=== PATIENT | female | born 1980 | race Caucasian/White ===

== ENCOUNTER 2018-12-26 09:27 | Emergency (ER) | payer OTHER, SELFPAY ==
[2018-12-26 09:38] VITALS: BP 143/93; PULSE 71; RESP 18; TEMP 37.2; O2SAT 100; BMI 26.4
--- NOTE | 2018-12-26 09:44 | ED_ITS ---
HPI - Chest Pain General Chief Complaint: Chest Pain Stated Complaint: chest pain/left arm/neck sore x2 days Time Seen by Provider: 12/26/18 09:35 Source: patient Mode of arrival: ambulatory Limitations: no limitations History of Present Illness HPI narrative: Patient is a 38-year-old female who presents with chest pain ongoing for the last few months. She says she has been to her PCP you did an EKG. She said last night she noticed it left of her chest and kind epigastric. She noticed it while she was watching TV it has been constant since then she was able to sleep off and on. It is nonradiating she denies any nausea she has no shortness of breath with exertion or at rest. No palpitations dizziness or lightheadedness. No family history of coronary artery disease. MD complaint: chest pain Onset (ago): month(s) Duration: constant Onset: during rest Pain location: substernal and left chest Severity: mild Related Data Home Medications Medication Instructions Recorded Confirmed naproxen 250 mg PO BID PRN MDD 500 12/26/18 12/26/18 Allergies Allergy/AdvReac Type Severity Reaction Status Date / Time aspirin Allergy Verified 12/26/18 09:40 Review of Systems Review of Systems Narrative: GENERAL: Denies chills, fatigue, malaise, fever, sweats, travel HEENT: Denies sinus pain, ear pain, sore throat, difficulty swallowing, neck pain RESPIRATORY: Denies dyspnea, cough, wheezing, hemoptysis, sputum. CARDIOVASCULAR: See HPI GASTROINTESTINAL: Denies nausea, vomiting, abdominal pain, diarrhea, constipation, melena. : Denies dysuria, frequency, incontinence, hematuria, urinary retention, flank pain. MUSCULOSKELETAL: Denies weakness, joint pain, or bony pain SKIN: No rash, no erythema, no pruritus NEUROLOGIC: Denies weakness, dizziness, headache, numbness, change in speech, confusion PSYCHIATRIC: No concerning psychosocial issues. 12 point review of systems is negative except for those stated above and HPI [facility] Medical History Patient denies medical problems (Acute) Social History Smoking Status: Never smoker Social History Smoking Status: Never smoker Comment: Implanon Exam Initial Vital Signs Initial Vital Signs: Vital Signs Temperature 98.9 F 12/26/18 09:38 Pulse Rate 71 12/26/18 09:38 Respiratory Rate 18 12/26/18 09:38 Blood Pressure 143/93 H 12/26/18 09:38 Pulse Oximetry 100 12/26/18 09:38 GENERAL: Well-appearing, well-nourished and in no acute distress. HEENT: Head atraumatic,EOMI, pupils reactive, face symmetric, moist mucous membranes CARDIOVASCULAR: Regular rate and rhythm without murmurs, rubs or gallops. RESPIRATORY: Breath sounds equal bilaterally, no wheezes rales or rhonchi. ABDOMEN: Soft, nontender. Normoactive bowel sounds all 4 quadrants. No guarding or rebound. EXTREMITIES: Normal range of motion, no clubbing or edema. Neurovascularly intact NEUROLOGICAL: Alert and oriented x4.Normal gait and speech. SKIN: Warm, dry, no laceration, no petechiae, no rashes or lesions. Scores HEART Score Heart Score history: Slightly Suspicious Heart Score EKG: Normal Heart Score Age: < 45 years old Heart Score risk factors: No known risk factors Heart Score troponin: < or = to normal limit Heart Score Total: 0 PERC Score Age greater than or equal to 50 years: No Heart rate greater than or equal to 100 bpm: No Room Air O2 Sat less than 95%: No Unilateral leg swelling: No Recent trauma or surgery: No Hemoptysis: No Prior PE or DVT: No Hormone Use: Yes Total PERC Score: 1 Course Orders Ordered: ED Orders 12/26/18 09:33 EKG-12 Lead Routine 12/26/18 09:40 Complete Blood Count AUTO DIFF Stat Comprehensive Metabolic Panel Stat D Dimer Stat Lipase Stat Troponin & CK Cardiac Panel Stat 12/26/18 09:42 XR chest 1V Stat Discontinued Medications Aspirin (Aspirin Chew) 324 mg PO NOW ONE Stop: 12/26/18 09:43 Last Admin: 12/26/18 09:47 Dose: Not Given Documented by: KATIE Ketorolac Tromethamine (Toradol) 30 mg IV NOW ONE Stop: 12/26/18 09:43 Last Admin: 12/26/18 09:50 Dose: 30 mg Documented by: KATIE Pantoprazole Sodium (Protonix) 40 mg IV NOW ONE Stop: 12/26/18 09:43 Last Admin: 09/16/19 09:49 Dose: 40 mg Documented by: KATIE Vital Signs Vital signs: Vital Signs - 8 hr 12/26/18 09:38 12/26/18 10:00 12/26/18 10:41 Temperature 98.9 F Pulse Rate 71 66 62 Respiratory Rate 18 16 15 Blood Pressure 143/93 H Blood Pressure [Left Arm] 123/92 H 123/85 Pulse Oximetry 100 100 100 MDM - Chest Pain Lab Data Attestation: I reviewed the patient's lab results. Result diagrams: 12/26/18 09:40 12/26/18 09:40 Labs: Lab Results 12/26/18 12/26/18 12/26/18 Range/Units 09:40 09:40 09:40 WBC 6.1 (4.5-11.0) X10^3/uL RBC 5.91 H (4.0-5.2) X10^6/uL Hgb 12.9 (12.0-16.0) g/dL Hct 39.7 (36-46) % MCV 67.1 L (80-100) fL MCH 21.9 L (26-34) PG MCHC 32.6 (30-36) % RDW 14.6 (11.6-14.8) % Plt Count 357 (150-400) X10^3/uL Neut % (Auto) 53.8 (50-75) % Lymph % (Auto) 36.4 (25-40) % Hettinger % (Auto) 7.4 (3-14) % Eos % (Auto) 1.4 L (2-4) % Baso % (Auto) 1.0 (0-2) % Neut # (Auto) 3300 (5691-9283) /uL Lymph # (Auto) 2200 (4156-2639) /uL Hettinger # (Auto) 500 (0-900) /uL Eos # (Auto) 100 (0-450) /uL Baso # (Auto) 100 (0-100) /uL RBC Morphology Normal morphology D-Dimer < 200 (<230) ng/mL Sodium 138 (137-145) mmol/L Potassium 3.9 (3.4-5.1) mmol/L Chloride 100 (98-107) mmol/L Carbon Dioxide 26 (22-32) mmol/L BUN 11 (7-17) mg/dL Creatinine 0.50 L (0.52-1.04) mg/dL Estimated GFR > 60.0 (>60) mL/min BUN/Creatinine Ratio 22.0 (6-22) Glucose 97 (70-100) mg/dL Calcium 9.2 (8.4-10.2) mg/dL Total Bilirubin 0.6 (0.2-1.3) mg/dL AST 24 (14-36) IU/L ALT 25 (9-52) IU/L Alkaline Phosphatase 92 (38-126) U/L Total Creatine Kinase 103 (30-135) U/L CK-MB (CK-2) 0.41 (<2.37) ng/mL CK-MB (CK-2) Rel Index 0.4 L (1.5-5.0) % Troponin I < 0.012 (0.01-0.034) ng/mL Total Protein 8.1 (6.3-8.2) g/dL Albumin 4.5 (3.5-5.0) g/dL Globulin 3.6 (1.7-4.1) g/dL Albumin/Globulin Ratio 1.3 (1.0-2.8) Lipase 95 (23-300) U/L Imaging Data Chest x-ray: Radiologist's impression: PROCEDURE: XR CHEST 1V INDICATIONS: chest pain TECHNIQUE: One view of the chest was acquired. COMPARISON: None. FINDINGS: Surgical changes and devices: None. Lungs and pleura: Lungs are clear. No pleural effusions or pneumothorax. Mediastinum: Mediastinal contours appear normal. Heart size is normal. Bones and chest wall: No suspicious bony lesions. Overlying soft tissues appear unremarkable. IMPRESSION: No acute cardiopulmonary disease. Dictated by: Gabbie Casey M.D. on 12/26/2018 at 10:34 ECG Data Attestation: I personally reviewed and interpreted this ECG as follows: Prior ECG tracings: not available for review Interpretation: Sinus rhythm rate 73 p.r. interval 140 for QRS 106 T-wave inversion noted in lead [address] elevation or depression. Incomplete right branch block noted. MDM Narrative Medical decision making narrative: The patient has a low risk heart score negative D-dimer low PERC score. At this time this is likely atypical chest pain recommend further outpatient workup. Troponin is negative. Pain only minimally improved after Toradol and Protonix. Discharge Plan Departure Patient Disposition: Home Clinical Impression: Atypical chest pain Discharge Date/Time: 12/26/18 10:57 Instructions: DI for Atypical Chest Pain Activity Restrictions/Additional Instructions: *You have been diagnosed with atypical chest pain *What to do: At this time blood work x-ray EKG are all reassuring. You may require further cardiac testing such as a stress test this can be discussed with her primary care provider *Continue to take medications as directed *Follow up with your primary care provider in 2-3 days *Return to ER if you should have increasing or changing chest discomfort increasing shortness of breath with exertion persistent nausea or vomiting or any new, worsening or concerning symptoms Prescriptions: No Action naproxen 250 mg Tablet 250 mg PO BID MDD 500 PRN (Reason: Pain (Scale Score 4-6)) RF: 0 Referrals: [facility] [Provider Group]
[2018-12-26] MEDS: PANTOPRAZOLE 40 MG VIAL IV (09:49)
[2018-12-26] MEDS: KETOROLAC 60 MG/2 ML VIAL 30 MG IV (09:50)
[2018-12-26 09:54] LABS: Add Manual Diff / Slide Review NO; Basophils Absolute Auto 100 /uL (0-100); Eosinophils Absolute Auto 100 /uL (0-450); Eosinophils Percent Auto 1.4 % (2-4); Hematocrit 39.7 % (36-46); Hemoglobin 12.9 g/dL (12.0-16.0); Lymphocytes Absolute Auto 2200 /uL (1100-4500); Lymphocytes Percent Auto 36.4 % (25-40); Mean Corpuscular HGB Conc 32.6 % (30-36); Mean Corpuscular Hemoglobin 21.9 PG (26-34); Mean Corpuscular Volume 67.1 fL (80-100); Monocytes Absolute Auto 500 /uL (0-900); Monocytes Percent Auto 7.4 % (3-14); Neutrophils Absolute Auto 3300 /uL (1500-7000); Neutrophils Percent Auto 53.8 % (50-75); Platelet Count 357 X10^3/uL (150-400); Red Blood Cell Count 5.91 X10^6/uL (4.0-5.2); Red Cell Distribution Width 14.6 % (11.6-14.8); White Blood Cell Count 6.1 X10^3/uL (4.5-11.0)
[2018-12-26 10:00] VITALS: BP 123/92; PULSE 66; RESP 16; O2SAT 100
[2018-12-26 10:02] LABS: D Dimer < 200 ng/mL (<230)
[2018-12-26 10:05] LABS: Alanine Aminotransferase 25 IU/L (9-52); Albumin 4.5 g/dL (3.5-5.0); Albumin Globulin Ratio 1.3 (1.0-2.8); Alkaline Phosphatase 92 U/L (38-126); Aspartate Aminotransferase 24 IU/L (14-36); Bilirubin Total 0.6 mg/dL (0.2-1.3); Blood Urea Nitrogen 11 mg/dL (7-17); Calcium 9.2 mg/dL (8.4-10.2); Carbon Dioxide 26 mmol/L (22-32); Chloride 100 mmol/L (98-107); Creatine Kinase 103 U/L (30-135); Estimated Glomerular Filt Rate > 60.0 mL/min (>60); Globulin 3.6 g/dL (1.7-4.1); Glucose 97 mg/dL (70-100); HEMOLYSIS < 15 (0-50); Lipase 95 U/L (23-300); Potassium 3.9 mmol/L (3.4-5.1); Sodium 138 mmol/L (137-145); Total Protein 8.1 g/dL (6.3-8.2)
[2018-12-26 10:09] LABS: RBC Morphology Normal Morphology
[2018-12-26 10:16] LABS: Troponin I < 0.012 ng/mL (0.01-0.034)
[2018-12-26 10:20] LABS: CKMB % Relative Index 0.4 % (1.5-5.0); Creatine Kinase MB 0.41 ng/mL (<2.37)
[2018-12-26 10:41] VITALS: BP 123/85; PULSE 62; RESP 15; O2SAT 100
== END 2018-12-26 10:57 | disposition home or self-care (01) ==
PROVIDERS: Emergency Provider Emergency Medicine
DX: R07.89 Other chest pain (principal)
CPT/HCPCS: 36591; 71045; 80053; 82550; 82553; 83690; 84484; 85025; 85379; 93005; 96374; 96375; 99282; 99285; C9113; J1885

== ENCOUNTER → 2020-01-02 16:58 | Outpatient (CLI) | payer OTHER, SELFPAY ==
--- NOTE | 2020-01-02 | DI.MG.S_ITS ---
BILATERAL DIGITAL SCREENING MAMMOGRAM 3D/2D WITH CAD: 01/02/2020 CLINICAL: Baseline exam. Routine screening. Family history of breast cancer. No prior exams were available for comparison. The tissue of both breasts is heterogeneously dense. This may lower the sensitivity of mammography. Current study was also evaluated with a Computer Aided Detection (CAD) system. No significant masses, calcifications, or other findings are seen in either breast. IMPRESSION: NEGATIVE There is no mammographic evidence of malignancy. A 1 year screening mammogram is recommended. This exam was interpreted at Station ID: [id number]. NOTE: For mammograms, a report in lay terms will be sent to the patient. Approximately 15% of breast malignancies will not be visualized mammographically. In the management of a palpable breast mass, a negative mammogram must not discourage biopsy of a clinically suspicious lesion. Electronically Signed By: Librado soriano/tiffany:01/03/2020 08:18:46 letter sent: Normal Exam ACR BI-RADS Category 1: Negative [id number]
== END ==
PROVIDERS: Referring Provider Obstetrics & Gynecology; Visit Provider Obstetrics & Gynecology
DX: Z12.31 Encounter for screening mammogram for malignant neoplasm of breast (principal); Z80.3 Family history of malignant neoplasm of breast
CPT/HCPCS: 77063; 77067